=== PATIENT | male | born 1985 | race Caucasian/White ===

== ENCOUNTER 2022-06-25 06:20 | Emergency (ER) | payer SELFPAY ==
[~2022-06-25] VITALS: Ht 180.3 cm; Wt 81.8 kg
[2022-06-25 06:36] VITALS: BP 140/70
[2022-06-25] MEDS ORDERED: LIDOcaine 1% W/epiNEPHrine 1:100,000 20ml vial SQ ONE (09:25)
[2022-06-25] MEDS ORDERED: sulfamethoxazole/trimethoprim DS (800/160mg) tablet PO ONE (09:25)
[2022-06-25] MEDS ORDERED: LIDOcaine 1% w/EPI 1:100,000 30ml vial (MDV) SQ ONE (09:40)
[2022-06-25] MEDS ORDERED: SULF1TAB49 PO (10:10)
== END 2022-06-25 10:25 | disposition home or self-care (01) ==
LOC: ER 06:22
DX: M27.2 Inflammatory conditions of jaws (principal); L02.211 Cutaneous abscess of abdominal wall; L02.511 Cutaneous abscess of right hand; Z79.2 Long term (current) use of antibiotics
CPT/HCPCS: 10060; 99283

== ENCOUNTER 2022-06-26 00:08 | Emergency (ER) | payer MEDICAID ==
[~2022-06-26] VITALS: Ht 180.3 cm; Wt 81.8 kg
[~2022-06-26 00:08] MED LIST: SULF1TAB49 PO
[2022-06-26] MEDS ORDERED: bacitracin 15gm ointment TP ONE (02:45)
[2022-06-26] MEDS ORDERED: ceFAZolin 1gm IM kit IM ONE (02:45)
[2022-06-26] MEDS ORDERED: ketorolac trometh inj. 60 MG/2 ML VIAL IM ONE (02:45)
[2022-06-26] MEDS ORDERED: acetaminophen 325mg tablet PO ONE (02:45)
[2022-06-26 03:28] VITALS: BP 137/89
== END 2022-06-26 03:31 | disposition home or self-care (01) ==
LOC: ER 00:09
DX: L02.211 Cutaneous abscess of abdominal wall (principal)
CPT/HCPCS: 96372; 99284; J0690; J1885

== ENCOUNTER 2022-07-22 18:29 | Emergency (ER) | payer MEDICAID ==
[~2022-07-22] VITALS: Ht 180.3 cm; Wt 81.8 kg
[2022-07-22 19:02] VITALS: BP 126/89
--- NOTE | 2022-07-22 19:16 | NUR ---
SPOKE WITH MD GASTELUM , UA NAD TESTICLE US ORDERED
--- NOTE | 2022-07-22 19:20 | NUR ---
PT SENT TO BATHROOM FOR URINE SAMPLE
[2022-07-22 19:37] LABS: CLARITY,URINE CLEAR (Clear); COLOR,URINE YELLOW (Yellow); GLUCOSE, URINE NEGATIVE (Neg); KETONES,URINE NEGATIVE (Neg); LEUKOCYTE ESTERASE ,URINE TRACE (Neg); NITRITES, URINE NEGATIVE (Neg); OCCULT BLOOD,URINE NEGATIVE (Neg); PH,URINE 8.5 (4.8-8.0); PROTEIN,URINE NEGATIVE (Neg); UROBILINOGEN,URINE 0.2 E.U/dL (0.2-1.0)
[2022-07-22 19:40] LABS: UA COLLECTION TYPE CLN CATCH MIDSTREAM
[2022-07-22 19:51] LABS: AMORPHOUS PHOSPHATES 2+; BACTERIA,URINE FEW /HPF (Neg); RBC,URINE 0-2 /HPF (0-2); WBC,URINE 0-4 /HPF (0-4)
[2022-07-22 19:52] LABS: SQUAMOUS EPITHELIAL CELL,UR NONE SEEN /LPF (FEW)
[2022-07-22] MEDS ORDERED: azithromycin 250mg tablet PO ONE (20:20)
[2022-07-22] MEDS ORDERED: CefTRIAXone 1000mg IM Kit (w/lidocaine diluent) IM STA (20:20)
[2022-07-22] MEDS ORDERED: HYDROcodone/acetaminophen 5mg/325mg tablet PO ONE (20:25)
[2022-07-22] MEDS ORDERED: ketorolac trometh inj. 60 MG/2 ML VIAL IM ONE (20:25)
--- NOTE | 2022-07-22 20:45 | NUR ---
po meds x2 given im x2 given
== END 2022-07-22 20:51 | disposition home or self-care (01) ==
LOC: ER 18:30
DX: N45.1 Epididymitis (principal); F17.200 Nicotine dependence, unspecified, uncomplicated; F15.10 Other stimulant abuse, uncomplicated
CPT/HCPCS: 36415; 81001; 87491; 87591; 96372; 99284; J0696; J1885